=== PATIENT | female | born 1960 | race African-American/Black ===

== ENCOUNTER 2017-06-22 18:11 | Inpatient (IN) | payer MEDICAID ==
[~2017-06-22] VITALS: Ht 154.9 cm; Wt 53.2 kg
--- NOTE | ~2017-06-22 | WRIGHTHP ---
[place], [place] PATIENT HISTORY AND PHYSICAL EXAM NAME: RENY RODRIGUEZ UNIT #: [id number] ROOM: 317 DOCTOR: HOLLY LONGORIA MD BIRTHDATE: [birth year] DOS: 06/23/2017 CHIEF COMPLAINT: "I don't know why I am here." HISTORY OF PRESENT ILLNESS: This is a 57-year-old black female who was sent here on an involuntary basis from [facility] Emergency Room. The patient was brought to [place] from her home via EMS due to increased agitation and very bizarre behavior. Apparently, the patient had been evicted from her home because of hoarding and living in deplorable conditions. She had been evicted from her home and in the course of being evicted escalated to the point where she represented harm to self and others. The patient has a lengthy history of schizoaffective disorder and had been seen at [facility] and most recently was seen at [facility], but has been noncompliant with her psychiatric medications. Because of her gross psychosis, the patient represents a significant harm to self and is admitted now to rule out organic factors and to re-stabilize on medication as well as to help find her adequate housing. PAST MEDICAL HISTORY: Remarkable for a lengthy history of schizoaffective disorder. MENTAL STATUS: The patient is alert and oriented with time gaps. Mood does seem to be somewhat depressed and she is very guarded and suspicious and is not totally forthcoming with details of her admission here as well as her current living situation. DIAGNOSIS: Schizoaffective disorder. PLAN: I will attempt to stabilize her on Risperdal M-Tab. If she is compliant with this, I would like to attempt to start her on Invega Sustenna. I have consulted Dr. Boo Salazar, psychologist, to explore competency issues. We will look to proceed with a hearing regarding continued length of stay as well as the possibility forced medication. HOLLY LONGORIA MD CM:HISPHYS:PATIENT HISTORY AND PHYSICAL EXAMINATION 8 7 HOLLY LONGORIA MD 06/23/1757 interface
--- NOTE | ~2017-06-22 | CON ---
[place], [place] REPORT OF CONSULTATION NAME: RENY RODRIGUEZ UNIT #: [id number] ROOM: 317 DOCTOR: RUBI TONY BIRTHDATE: [birth year] DOS: 06/23/2017 LOCATION: The patient was seen in room 317, bed 1. HISTORY OF PRESENT ILLNESS: This is a polite 57-year-old -Luxembourger female who was brought to [facility] on an involuntary basis from [facility] Emergency Room. Her family reported her having bizarre and unusual behavior. They report she has a history of psychotic disorder as well as schizoaffective disorder, which was treated at [facility] for a long period of time in the past. Her home is apparently in deplorable conditions per the EMS report and according to family and friends history, she is being evicted at this time. The patient admits to having history with [facility] and states they were supportive to her in the past. She also reports that she has a brother and sister. Her sister's name is Bob Mazariegos, phone #[phone] and brother, Abdiel Mazariegos, , who are both involved and supportive. She was alert and oriented in all 3 spheres. She knew her date of , her age. She also knew she was at [facility] in the Behavioral Health Unit as well as the date and the president at the time. She was able to give a lengthy history on her mental health as well as her family. She appears to be alert and oriented in all 3 spheres at this time in my opinion. She was agreeable to consenting to any forms that need signed as well as possibly signing a medical power of document review attorney paper for her sister. This was discussed with nursing who will follow up. MEDICATIONS: Cephalexin, Risperdal. PAST MEDICAL HISTORY: Metabolic encephalopathy, UTI, hyperglycemia, hyperkalemia, schizoaffective disorder, systolic murmur. PHYSICAL EXAMINATION: Again, this patient was awake, alert and oriented in all 3 spheres when I met with her today at approximately 11:00 a.m. She did not appear or admit to having any active hallucinations or delusions at the time. She did, however, admit to having a history of auditory hallucinations and delusions in the past. She states she has no intention of harming herself or anyone else at this time. She stated she is agreeable to staying in the Behavioral Health Unit until her medications can be "figured out so that she feels better." At this time, I feel the patient is competent to make her own decisions. DIAGNOSIS: Schizoaffective disorder. RECOMMENDATIONS: The patient should be kept in the Behavioral Health Unit to stabilize her medications prior to being discharged. This was discussed with nursing. Social work is looking into patient's living situation to see if she is homeless or requires placement upon discharge. Thank you for the consult. [place], [place] REPORT OF CONSULTATION NAME: THIAGO RODRIGUEZLINE UNIT #: [id number] ROOM: [facility] DOCTOR: RUBI TONY BIRTHDATE: [birth year] Rubi Pineda [facility] CM:CONSTR:REPORT OF CONSULTATION 1318 06/23/17 [id number] interface
--- NOTE | ~2017-06-22 | DS ---
[place], [place] DISCHARGE SUMMARY NAME: RENY RODRIGUEZ UNIT #: [id number] ROOM: 317 DOCTOR: HOLLY LONGORIA MD BIRTHDATE: [birth year] DOS: 06/25/2017 CHIEF COMPLAINT: "I don't know why I am here." HISTORY OF PRESENT ILLNESS: This is a 57-year-old black female who was sent here on an involuntary basis from [facility] Emergency Room. The patient was brought there by EMS due to increased agitation and bizarre behavior. Apparently, the patient had been evicted from her apartment because of hoarding and living in deplorable conditions. In the course of being evicted, she escalated to the point where she represented harm to self and others. She has a lengthy history of schizoaffective disorder and most recently was seen at [facility], but has been noncompliant with her meds and her aftercare. Because of her gross psychosis and potential harm to self and others, she is admitted now to rule out organic factors and attempt to stabilize on medication while engaging in individual and fry milieu activity. PAST MEDICAL HISTORY: Remarkable for the lengthy history of schizoaffective disorder. SUMMARY OF HOSPITAL COURSE: The patient was admitted to the unit where she was found to be pleasantly psychotic there. There was an air of paranoia about her. She refused; however, to engage in therapy and refused all medications. Despite attempting to educate her on the need and the side effect, she refused all medicines. She did this; however, in a pleasant and cooperative manner. She was not agitated in any way. She was not verbally or physically aggressive. At no point in time did she make a comment that she wanted to hurt herself or others and she made no effort to do so. Given the fact that she represented little to no harm to self and others and was noncompliant with aspects of care, we had no choice but to discharge her back to the community. Her brother did step up and state that he would come and pick her up and attempt to help her find living situation and she was discharged in his care. MENTAL STATUS AT DISCHARGE: The patient is alert and oriented. Mood is somewhat labile, but redirectable and she self redirects. There are no overt auditory or visual hallucinations. There is mild paranoia. Memory is intact. FINAL DIAGNOSIS: Schizoaffective disorder. DISPOSITION: I will go ahead and print her script in case she decides in the future to fill it and begin to be compliant. She will have followup at [facility] and she is being discharged in her brother's care. [place], [place] DISCHARGE SUMMARY NAME: RENY RODRIGUEZ UNIT #: [id number] ROOM: 317 DOCTOR: HOLLY LONGORIA MD BIRTHDATE: [birth year] HOLLY LONGORIA MD CM:DISCHARG 37 HOLLY LONGORIA MD 06/25/171836 interface
[2017-06-22] MEDS ORDERED: CEPHALEXIN500 M1 PO (19:58)
--- NOTE | 2017-06-22 20:00 | NUR ---
UPDATE FROM [facility] ED. CLIENT GIVEN KEFLEX 500MG PO FOR UTI, 40MEQ POTASSIUM FOR K LEVEL OF 3.4, ATIVAN 1MG UPON ADMISSION TO THEIR ED FOR AGGITATION.
--- NOTE | 2017-06-22 21:20 | NUR ---
MICHAELRENY a 57 year old F admitted via ambulance from the ADMITTING as a emergency 72 hr. hold admission. Arrived on unit at 2120PM. ALLERGIES: NONE. Vital signs are: 98.4-88-16 142/94. CLIENT IS PINK SLIPPED AND UNABLE TO sign the following forms with stated understanding: Authorization For The Release of Medical Information, Clothing List, Consent to Voluntary Admission and Hospitalization, Consent and Release Forms/Receipt of Rights, Acknowledgement of Advance Directive Information, Behavioral Health Consent Form, and Informed Consent of Medications. Admitted under the services of Dr. SWATI PRADO,[facility]. A search was conducted and hazardous articles were removed. Client was oriented to the unit. CLIENT DIFFICULT TO KEEP FOCUSED. HAS TANGENTIAL SPEECH WITH FLIGHT OF IDEAS. UNABLE TO HOLD A CONVERSATION WITHOUT SWITCHING TOPICS AT LEAST TWICE. SPEECH IS THICK AND SLURRED AND TIMES. APPEARS TO HAVE SOME DIFFICULTY WITH HEARING. REFUSES TO SIGN ANY PAPERWORK THAT HAS TO DO WITH MEDICATION. STATES "I'M NOT SICK, NO NEED FOR THE MEDICINE CABINENT STUFF BECAUSE YOU KNOW IT IS". ASAD GALLAGHER
[2017-06-22 21:28] VITALS: BP 142/94; BP 144/96
--- NOTE | 2017-06-22 22:17 | NUR ---
DR NEWMAN NOTIFIED OF MEDICAL CONSULT. STATED TO PUT CONSULT UNDER DR MENJIVAR.
--- NOTE | 2017-06-22 22:33 | NUR ---
HOSPITALIST HERE TO SEE CLIENT
--- NOTE | 2017-06-22 22:36 | NUR ---
CLIENT IS FASINATED WITH WATER SPIKET. KEEPS SMILING AND GOING BACK TO SINK WHEN WATER STOPS. OFFERED SHOWER BUT REFUSED. WASHING AT SINK. INTERUPTED BY DOCTOR VISIT. WILL CONTINUE TO TRY TO GET HER TO SHOWER.
--- NOTE | 2017-06-23 | NUR ---
POSITIVE REINFORCEMENT GIVEN FOR CLIENTS SAFETY. SHE IS WORRIED MALE PEER IS GOING TO GO INTO HER ROOM. REASSURED WE ARE CONTINUOUSLY WATCHING THE HALLS AND HE WILL NOT ENTER HER ROOM. WILL CONTINUE TO MONITOR
--- NOTE | 2017-06-23 03:39 | NUR ---
24 HR chart check completed.
--- NOTE | 2017-06-23 05:59 | NUR ---
SLEPT WELL PAST 1AM. MOVES SELF WITH EASE IN BED.
[2017-06-23 06:38] LABS: BASO % 0.4 % (0.0-1.0); EOS # 0.1 10*3/uL (0.0-0.4); EOS % 1.1 % (1.0-4.0); HEMATOCRIT 34.3 % (37.0-47.0); HEMOGLOBIN 11.2 g/dl (12.0-16.0); LYMPH # 1.4 10*3/uL (1.3-4.4); LYMPH % 25.6 % (27.0-41.0); MEAN CELL VOLUME 94.8 fl (81.0-99.0); MEAN CORPUSCULAR HGB 30.9 pg (27.0-31.0); MEAN CORPUSCULAR HGB CONC 32.7 g/dl (33.0-37.0); MEAN PLATELET VOLUME 11.2 fl (9.6-12.3); MONO # 0.6 10*3/uL (0.1-1.0); MONO % 9.9 % (3.0-9.0); NEUT # 3.5 10*3/uL (2.3-7.9); NEUT % 62.6 % (47.0-73.0); PLATELET COUNT AUTOMATED 204 10*3/uL (130-400); RED BLOOD COUNT 3.62 10*6/uL (4.10-5.10); RED CELL DISTRI WIDTH 13.8 % (0-14.5); WHITE BLOOD COUNT 5.5 10*3/uL (4.8-10.8)
[2017-06-23 07:13] LABS: ALBUMIN 3.3 gm/dl (3.1-4.5); ALKALINE PHOSPHATASE 65 U/L (45-117); BUN 6 mg/dl (7-24); CHLORIDE 107 mmol/L (98-107); CHOLESTEROL 158 mg/dL (<200); CREATININE 0.67 mg/dL (0.55-1.02); HDL CHOLESTEROL 59 mg/dl (40-60); LDL CHOLESTEROL 92 mg/dL (9-159); POTASSIUM 4.3 mmol/L (3.5-5.1); SGOT/AST 10 IU/L (3-35); SGPT/ALT 10 U/L (12-78); SODIUM 144 mmol/L (136-145); TOTAL PROTEIN 8.1 gm/dL (6.4-8.2); TRIGLYCERIDES 35 mg/dl (<150); VLDL CHOLESTEROL 7 mg/dL (6-40)
[2017-06-23 08:09] LABS: VITAMIN D, 25-HYDROXY 7.8 ng/mL (30-100)
[2017-06-23 08:21] VITALS: BP 136/76
--- NOTE | 2017-06-23 13:32 | NUR ---
Staci Bhatia Patient did not attend group this morning.Patient refused and was encouraged to join but continued to back further into her room and refuse to join. AC will attempt again for afternoon group
--- NOTE | 2017-06-23 14:15 | NUR ---
Skyla has been noted to be somewhat withdrawn and suspicious of others. Initially suspicious of this staff member when approached, however, after a period of time she did begin speaking and conversing with me. Paranoia is noted and auditory hallucinations are suspected, although she does not admit to experiencing these when questioned. She carefully observed this staff member administering medications to a female peer, afterwhich, she became more receptive to taking her own. Explained to Skyla the purposes of each medication and after some time she was agreeable to taking the antibiotic and the vitamin D. She did, however, refuse to take the prescribed Risperdal Mtab and the B12 injection. She also required much encouragement to complete testing as ordered, but was receptive if staff would remain with her while doing so. Noted to be somewhat fearful of others and has been noted to approach the dining room area with caution. States to staff that she does not like "all those people." Support and reassurance was provided. Dr. Salazar was notified of request for competency evaluation and did come to the unit to see her. Dr. Toscano also in to see her today. Refer to [facility] flowsheet for specific monitoring.
--- NOTE | 2017-06-23 15:40 | NUR ---
DICKSON Patient again did not attend group. Patient was encouraged by both myself and an enviromental service staff member,Shannon. But patient continued to refuse backing futher into her room.
--- NOTE | 2017-06-23 16:11 | NUR ---
PHYSICAL THERAPY EVALUATION COMPLETED. PATIENT WAS IN HER ROOM WITH THE DOOR SHUT AND ALLOWED THIS CLINICIAN IN HER ROOM, PATIENT PREFERS TO BE IN HER ROOM. PATIENT DOES NOT LIKE CROWDS. PATIENT WAS FULLY PARTICIPATIVE. PATIENT DENIED PAIN. PATIENT TRANSFERS INDEPENDENTLY; AMBULATION WITHOUT ASSISTIVE DEVICES SAFELY AND X 300FT WITHOUT SOB OR DISTRESS. PATIENT STRENGTH AND ROM WFL. PATIENT REPORTS NO STAIRS AT HER HOME; A RAMP TO ENTER. PHYSICAL THERAPY EVALUATION ONLY; PATIENT VERBALIZED UNDERSTANDING. THIS CLINICAN COMMUNICATED EVAL ONLY WITH JUAN LUIS SHANNON WELL. NURSING ENTERING PATIENT'S ROOM UPON MY DEPARTURE. PT EVALUATION LOW COMLEXITY THANK YOU FOR THIS REFERRAL, CHEPE PALOMO, PT
[2017-06-23 20:15] VITALS: BP 132/87
--- NOTE | 2017-06-23 21:33 | NUR ---
SITTING READING BOOK. AFTER MUCH ENCOURAGEMENT AND EXPLAINATION CLIENT DID TAKE KEFLEX BUT REFUSED REMERON-M. DISCUSSED IMPORTANCE OF TAKING THE ANTIPSYCOTIC TO HELP CLEAR HER THOUGHT PROCESS. CONTINUES TO DENY THAT SHE HAS ANY MENTAL HEALTH ISSUES. UNABLE TO REDIRECT. DOES APPEAR TO HAVE AN OCD PROBLEM WITH GERMS. WHEN I OPENED HER KEFLEX AND ATTEMPTED TO PUT IT IN HER HAND SHE GOT ANXIOUS AND SAID NO TO GIVE HER THE PILL IN THE PACKAGE. SHE THEN PROCEEDED TO TAKE PILL OUT OF PACKAGE WITH HER TEETH. ASKED WHY SHE DID THIS INSTEAD OF USING THE CUP SHE STARTED RAMBLING PRESSURED SPEECH ABOUT "DIRT AND GERMS AND OUTSIDE AND YOU KNOW HOW IT IS" WILL MONITOR TO CINTINUED ISSUES WITH GERMS.
--- NOTE | 2017-06-24 03:30 | NUR ---
24 HR chart check completed.
--- NOTE | 2017-06-24 06:19 | NUR ---
WAS QUIET ALL NIGHT BUT SLEPT POOR. REMAINS AFRAID AND ANXIOUS BUT DENIES. EMOTIONAL SUPPORT PROVIDED
[2017-06-24 08:05] VITALS: BP 140/89
--- NOTE | 2017-06-24 08:27 | NUR ---
TREATMENT TEAM WAS HELD WITH THE FOLLOWING PRESENT: URVASHI BATES, TUMBLING BARREL PAINTER, RN AND SW. EVICTED FORM APARTMENT? DR. LONGORIA FEELS THAT SHE IS QUIETLY PSYHCOTIC AND NOT POSING A DANGER TO SELF OR OTHERS. DISCHARGE ON THURSDAY PENDING.
--- NOTE | 2017-06-24 09:48 | NUR ---
dr. marlen MD. psychiatrist during tx. team this morning asked that it be verified whether or not pt. has been evicted from apt. and where she will be d/c'ed to tomorrow. [facility] did "track" down brother and sister's phine numers. The sister, Bob is and the brother is . [facility] spoke with pt sister, Bob who states she thinks her brotherRakesh will take her in and will have him call me, instead of this SWS call him. I asked that she get a hold of him caitlin and let her know. The brother and sister will also transport pt. to her destination tomorrow upon d/c. SWS also called and left for [facility], who according to the sister states they will take pt. back. Trying to ccordinate follow up appt. with [facility] possibly for tomorrow so that brother and sister can take pt. directly to [facility] tomorrow if at all possible. pt. will also need follow up appt. with pcp, no pcp involved at this time according to pt.
--- NOTE | 2017-06-24 10:14 | NUR ---
pt. brother Rakesh called PIA and states that he, not his brother Rakesh, will come get pt. tomorrow with his sister, marline. PIA let him know that she is working on setting up an appt. with [facility] posibly for tomorrow and will let them know when and what time the appt. is for tomorrow and what time for d/c.
--- NOTE | 2017-06-24 10:19 | NUR ---
[facility] rec'd a call from pt. brother, Dm who states that he and his sister, Bob will pharmacy picking technician pt. tomorrow, not his brother Rakesh. pt. will be transported directly to [facility] for a walk-in appt. tomorrow (clinic open until 2pm). The family will be here at 10:30am to pick pt. up. pt will need follow up also with pcp. The family is willing to take pt. also to the free [facility] on [facility]. they have walk-in hours too.
--- NOTE | 2017-06-24 10:39 | NUR ---
ALESIA ESQUEDANP ON UNIT TO ASSESS PT.
--- NOTE | 2017-06-24 11:07 | NUR ---
SWS left for [facility] to attempt to get facility fax number.
--- NOTE | 2017-06-24 11:11 | NUR ---
pt brotherDm's phine number is [phone]
--- NOTE | 2017-06-24 11:28 | NUR ---
Discussed d/c with SW for tomrrow. SW to follow up with brother and sister tomorrow to verify the address and what sibling, pt. is being placed with due to concerns of family's ability to make decisions and process information given by SWS today over the phone. pt. is to go to [facility] directly from hospital and then to [facility].
--- NOTE | 2017-06-24 11:57 | NUR ---
Crafts:Scary Scarecrow/Reminiscing Patient did not attend group today. As patient was being encouraged to come patient kept backing up further into her room. AC felt she was making patient uncomfortable and discontinued the discussion
--- NOTE | 2017-06-24 15:09 | NUR ---
PT ALERT TO PERSON, UNSURE OF PLACE OR TIME, PT REFUSING TO ANSWER THESE QUESTIONS. PT MED COMPLIANT WITH MINIMAL DIFFICULTY. PT EDUCATED ON EACH MED MULTIPLE TIMES BEFORE AGREEING TO TAKE THEM. PT MOOD IS DEPRESSED AND PSYCHOTIC. PT HAS PAPER TOWELS FOLDED UP AND LAYING IN VARIOUS SPOTS THROUGHOUT HER ROOM. WHEN STAFF/HOUSEKEEPING ATTMEPTED TO CLEAN THEM UP PT BECAME AGITATED STATING "LEAVE THOSE THERE, I CAN'T WALK ON THE FLOOR, I ONLY WALK ON THEM." PT DENIES ANY HALLUCINATIONS, PT OBSERVED TO BE RESPONDING TO INTERANAL STIMULI, EYE DARTING AND WHISPERING NOTED AT TIMES. PT EXPRESSED FAR TO THIS NURSE OF THE PEOPLE WALKING OUTSIDE OF HER ROOM, ATTMPETED TO PROVIDE POSITIVE REASSURANCE TO PT, ADVISING THAT STAFF IS CONSTANTLY MONITORING THE HALLS AND THAT SHE IS SAFE HERE, INTERVENTION INEFFECTIVE, PT CONTINUING TO SPEAK OVER THIS NURSE, STATING "THOSE PEOPLE OUT THERE GOT SOME KIND OF MENTAL ILLNESS IF ALL THEY DO IS WALK UP AND DOWN THE SHORT." PT DENIES ANY HOMICIDAL/SUICIDAL THOUGHTS. PT AMBULATORY THROUGHOUT UNIT, GAIT STEADY. PT CONTINENT OF BOWEL AND BLADDER. PLAN IS TO ENCOURAGE PT TO PARTICIPATE IN GROUPS/ACTIVITIES, CONTINUE TO EDUCATE PT ON MEDS AND ENCOURAGE MED COMPLIANCE.
[2017-06-24 19:14] VITALS: BP 132/75
--- NOTE | 2017-06-24 21:07 | NUR ---
24 HR chart check completed.
--- NOTE | 2017-06-25 05:54 | NUR ---
PT HAS BEEN OBSERVED ON Q 15 MIN CHECKS & HAS SLEPT QUIETLY THROUGHOUT THE SHIFT PAST 2300. CONTINUES TO BE GUARDED IN VERBAL CONVERSATION BUT RESPECTFUL.
[2017-06-25 07:52] VITALS: BP 114/77
[2017-06-25] MEDS ORDERED: RISPERIDONE M-TA1 MG BC (09:40)
--- NOTE | 2017-06-25 10:55 | NUR ---
PT IS ALERT AND ORIENTED WITH DISJOINTED THINKING NOTED. REFUSED ALL AM MEDICATIONS, AWARE. ISOLATIVE AND WITHDRAWN TO ROOM. SENSORY DISTURBANCES ARE QUESTIONABLE. Discharge instructions reviewed with patient/family. Patient receptive and verbalizes understanding. Follow-up care arranged. Written instructions given to patient/family. JESSICA SANCHEZ
--- NOTE | 2017-06-25 16:51 | NUR ---
SW MEET WITH PT AND FAMILY. PT IS REFUSING TO STAY WITH FAMILY. SW INFORMED FAMILY TO TRY [facility] FOR CRISIS STABLIZATION OR [facility]. PT SIGNED PAPERWORK AND COPIES GIVE N TO PT. PT AGREED TO GO TO [facility] FOR TREATMENT. PT DISCHARGED IN THE CARE OF BROTHER VINCENZO AND SISTER REMINGTON.
--- NOTE | 2017-06-25 16:53 | NUR ---
SW RECEIVED CALL FROM [facility] INFORMING SW THAT THEY DO NOT HAVE A REISDENTAL STEP DOWN PROGRAM. IT IS NOW WITH [facility]. SW INFORMED WORKER THAT PT WAS TO COME TO THEM FOR TREATMENT AND TO CALL [facility] FO STABLIZATION PROGRAM. WORKER WILL FAX SW STEPS TO HAVE SOMEONE ADMITTED TO [facility] PROGRAM. [facility]
--- NOTE | 2017-06-25 16:55 | NUR ---
SHE SPOKE WITH SISTER CAITLIN AND INFORMED HER THAT SHE WAS SENDING REFERRAL TO [facility] FOR ASSISTING WITH STABILZATION OR RESIDENTIAL PROGRAM. CAITLIN STOUT FOR ASSISTANCE.
--- NOTE | 2017-06-25 16:56 | NUR ---
SHE FAXED REFERRAL TO [facility] ATTN JADA .
== END 2017-06-25 11:05 | disposition home or self-care (01) | DRG 885 ==
LOC: 3N 18:11
PROVIDERS: ADMIT Psychiatry & Neurology Psychiatry
DX: F25.9 Schizoaffective disorder, unspecified (principal); G93.41 Metabolic encephalopathy; N39.0 Urinary tract infection, site not specified; R03.0 Elevated blood-pressure reading, without diagnosis of hypertension; F42.3 Hoarding disorder; R73.9 Hyperglycemia, unspecified; E87.6 Hypokalemia; R01.1 Cardiac murmur, unspecified; Z53.29 Procedure and treatment not carried out because of patient's decision for other reasons; Z91.14 Patient's other noncompliance with medication regimen; Z82.3 Family history of stroke; Z84.1 Family history of disorders of kidney and ureter; Z79.899 Other long term (current) drug therapy